=== PATIENT | female | born 1975 | race Caucasian/White ===

== ENCOUNTER 2020-12-02 11:42 | Emergency (ER) | payer OTHER ==
[~2020-12-02] VITALS: Ht 167.6 cm; Wt 78.0 kg
[2020-12-02 11:50] VITALS: BP 115/70
--- NOTE | 2020-12-02 12:06 | NUR ---
45 Y/O FEMALE PT STATES "IM JUST NOT FEELING GOOD, I FEEL LIKE I HAVE A LUMP IN MY THROAT", STATES SHE DOES HAVE HISTORY OF ANXIETY. PATIENT BECOMES TEARFUL DURING ASSESSMENT STATING "EVERYTHING IS JUST A LOT". PT STATES SHE HAS INTERMITTENT LIGHTHEADEDNESS X4 DAYS, AND INTERMITTENT SOB PMH: ANXIETY NKDA
--- NOTE | 2020-12-02 12:35 | NUR ---
X RAY AT BEDSIDE.
[2020-12-02 13:23] LABS: ANION GAP 15.1 (8-16); CARBON DIOXIDE 27.8 mmol/L (21-32); CREATININE 0.9 mg/dL (0.6-1.3); POTASSIUM 3.9 mmol/L (3.5-5.1)
[2020-12-02 14:28] LABS: FREE T4 (FREE THYROXINE) 0.84 ng/dL (0.76-1.46); MAGNESIUM 2.1 mg/dL (1.8-2.4); PHOSPHORUS 3.4 mg/dL (2.5-4.9); THYROID STIMULATING HORMONE 1.03 uIU/mL (0.34-3.74)
[2020-12-02 14:43] VITALS: BP 115/70
--- NOTE | 2020-12-02 14:43 | NUR ---
Patient discharged with v/s stable. Written and verbal after care instructions given and explained. Patient verbalized understanding. Ambulatory with steady gait. All questions addressed prior to discharge. Advised to follow up with PMD.
== END 2020-12-02 14:43 | disposition home or self-care (01) ==
LOC: MED 11:42
DX: F41.9 Anxiety disorder, unspecified (principal)
CPT/HCPCS: 36415; 71045; 80048; 83735; 84100; 84439; 84443; 84484; 85379; 93005; 99285

== ENCOUNTER 2021-04-14 09:50 | Emergency (ER) | payer OTHER ==
[~2021-04-14] VITALS: Ht 167.6 cm; Wt 89.4 kg
[2021-04-14 09:55] VITALS: BP 119/69
--- NOTE | 2021-04-14 09:55 | NUR ---
PT AMBULATED TO BED 10 WITH STEADY GAIT.
--- NOTE | 2021-04-14 10:11 | NUR ---
46 Y/O FEMALE C/O CHEST PAIN 02/10 DESCRIBES PRESSURE NON-RADIATING X1DAY WITH EPISODE OF DIZZINESS. DENIES ANY SYNCOPE. PT STATES SHE IS WORRIED ABOUT HER LOW HR RECORDED ON HER [employer]. STATES THE HR IS IN THE 40S. 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 STATES +N DENIES VOMITING, DENIES FVER/CHILLS. PMH: ANXIETY NKA
--- NOTE | 2021-04-14 10:38 | NUR ---
DR. MOODY AT PT BEDSIDE FOR FURTHER EVALUATION.
--- NOTE | 2021-04-14 10:46 | NUR ---
CATTYMAN AT PT BEDSIDE.
[2021-04-14 11:02] LABS: HEMATOCRIT 38.7 % (36-48); HEMOGLOBIN 13.1 g/dL (12.0-16.0); MEAN CORPUSCULAR HEMOGLOBIN 32 pg (27-31); MONOCYTES # (AUTO) 0.6 K/uL (0.8-1.0)
--- NOTE | 2021-04-14 11:08 | NUR ---
UTILIZATION REVIEW RN AT PT BEDSIDE.
[2021-04-14 11:10] LABS: BASOPHILS % (AUTO) 0.7 % (0.0-2.0); EOSINOPHILS # (AUTO) 0.2 K/uL (0-0.4); EOSINOPHILS % (AUTO) 3.3 % (0.0-4.0); LYMPHOCYTES # (AUTO) 2.4 K/uL (2.5-16.5); LYMPHOCYTES % (AUTO) 50.4 % (20.5-51.1); MEAN CORPUSCULAR HGB CONC 34 g/dL (33-37); MEAN CORPUSCULAR VOLUME 93.5 fL (80-94); NEUTROPHILS # (AUTO) 1.6 K/uL (1.8-7.7); NEUTROPHILS % (AUTO) 33.6 % (42.2-75.2); PLATELET COUNT (AUTO) 214 K/uL (140-450); RED BLOOD CELL COUNT(AUTO) 4.14 MIL/uL (4.20-5.40); RED CELL DISTRIBUTION WIDTH 13.3 % (11.6-13.7); WHITE BLOOD COUNT (AUTO) 4.7 K/uL (4.8-10.8)
[2021-04-14 11:21] LABS: ALBUMIN 3.7 g/dL (3.4-5.0); ANION GAP 8.9 (8-16); CARBON DIOXIDE 26.7 mmol/L (21-32); CREATININE 0.8 mg/dL (0.6-1.3); POTASSIUM 4.6 mmol/L (3.5-5.1); TOTAL BILIRUBIN 0.4 mg/dL (0.0-1.0)
[2021-04-14 12:44] VITALS: BP 119/69
--- NOTE | 2021-04-14 12:45 | NUR ---
Patient discharged with v/s stable. Written and verbal after care instructions given and explained. Patient verbalized understanding. Ambulatory with . All questions addressed prior to discharge. Advised to follow up with PMD.
[2021-04-14 15:18] LABS: MAGNESIUM 2.1 mg/dL (1.8-2.4)
== END 2021-04-14 12:45 | disposition home or self-care (01) ==
LOC: MED 09:50
DX: R07.89 Other chest pain (principal); F41.9 Anxiety disorder, unspecified; Z98.890 Other specified postprocedural states
CPT/HCPCS: 36415; 71045; 80053; 83735; 84484; 84703; 85025; 93005; 99285

== ENCOUNTER 2022-07-25 10:16 | Emergency (ER) | payer OTHER ==
[~2022-07-25] VITALS: Ht 167.6 cm; Wt 96.6 kg
--- NOTE | 2022-07-25 10:39 | NUR ---
CALLED X 1. NO SHOW
--- NOTE | 2022-07-25 11:00 | NUR ---
C/O COUGH, SORE THROAT X 3 DAYS. SON HAS FLU A+.
[2022-07-25 11:03] VITALS: BP 125/84
--- NOTE | 2022-07-25 11:08 | NUR ---
FLU, COVID SWABS DONE.
[2022-07-25] MEDS ORDERED: IBUP-2213 PO (11:55)
[2022-07-25] MEDS ORDERED: BENZ-300 PO (11:55)
[2022-07-25] MEDS ORDERED: PROM118S5 PO (11:55)
[2022-07-25 12:15] VITALS: BP 125/84
--- NOTE | 2022-07-25 12:15 | NUR ---
Patient discharged with v/s stable. Written and verbal after care instructions given and explained. Patient alert, oriented and verbalized understanding of instructions. Ambulatory with steady gait. All questions addressed prior to discharge. ID band removed. Patient advised to follow up with PMD. Rx of CEPACOL, IBUPROFEN, PROMETHAZINE given. Patient educated on indication of medication including possible reaction and side effects. Opportunity to ask questions provided and answered.
== END 2022-07-25 12:15 | disposition home or self-care (01) ==
LOC: MED 10:16
DX: J06.9 Acute upper respiratory infection, unspecified (principal); Z20.822 Contact with and (suspected) exposure to COVID-19; Z79.899 Other long term (current) drug therapy
CPT/HCPCS: 99283

== ENCOUNTER 2024-02-06 17:13 | Emergency (ER) | payer OTHER ==
[~2024-02-06] VITALS: Ht 167.6 cm; Wt 104.3 kg
[~2024-02-06 17:13] MED LIST: BENZ-300 PO; IBUP-2213 PO; PROM118S5 PO
[2024-02-06 17:38] VITALS: BP 107/74; PULSE 76; RESP 18; TEMP 97.6; O2SAT 99
[2024-02-06] MEDS ORDERED: MEDR10TA PO (18:26)
[2024-02-06] MEDS ORDERED: IBUP-2213 PO (18:26)
== END 2024-02-06 18:32 | disposition home or self-care (01) ==
LOC: MED 17:13
DX: N93.8 Other specified abnormal uterine and vaginal bleeding (principal); R42 Dizziness and giddiness; Z98.890 Other specified postprocedural states; Z79.1 Long term (current) use of non-steroidal anti-inflammatories (NSAID); Z79.899 Other long term (current) drug therapy
CPT/HCPCS: 81002; 81025; 99283

== ENCOUNTER 2024-02-16 17:44 | Emergency (ER) | payer OTHER ==
[~2024-02-16] VITALS: Ht 167.6 cm; Wt 101.6 kg
[~2024-02-16 17:44] MED LIST changes: +MEDR10TA PO
[2024-02-16 18:24] VITALS: BP 107/71; PULSE 76; RESP 18; TEMP 97.3; O2SAT 100
[2024-02-16] MEDS ORDERED: CEPH-588 PO (19:00)
== END 2024-02-16 19:16 | disposition home or self-care (01) ==
LOC: MED 17:44
DX: L30.9 Dermatitis, unspecified (principal); T63.441A Toxic effect of venom of bees, accidental (unintentional), initial encounter; Z79.899 Other long term (current) drug therapy; Y92.89 Other specified places as the place of occurrence of the external cause
CPT/HCPCS: 99283